=== PATIENT | male | born 1995 | race American Indian/Alaskan Native ===

== ENCOUNTER 2021-10-02 10:49 | Emergency (ER) | payer SELFPAY ==
--- NOTE | 2021-10-02 12:48 | Emergency Department Report ---
ED ENT HPI - General Chief complaint: Dental/Oral Stated complaint: ORAL PAIN AND FACIAL LACERATIONS Time Seen by Provider: 10/02/21 12:43 Source: patient Mode of arrival: Ambulatory Limitations: No Limitations - History of Present Illness Initial comments: 25-year-old male presents to the ER today with complaints of dental pain. Patient states that symptoms started about 3 days ago. He complains of pain to his right upper and lower jaw. He does admit that he has "bad teeth" in that area. He does not currently have a dentist. He does have health insurance but he is unsure if he has dental coverage. Patient states that the pain seems to be getting worse and he noticed some swelling to his right cheek and right lower jaw recently. He denies any trismus, drooling, facial redness, fever, chills, difficulty swallowing, difficulty breathing or any additional symptoms at this time. MD complaint: tooth pain -: days(s) (3 days ago ) - Related Data Previous Rx's Medication Instructions Recorded Last Taken Type Clindamycin [Clindamycin CAP] 300 mg PO Q8H #40 cap 10/02/21 Unknown Rx Ibuprofen [Motrin] 600 mg PO Q8H PRN #30 tablet 10/02/21 Unknown Rx traMADoL [Ultram] 50 mg PO Q6HR PRN #12 tablet 10/02/21 Unknown Rx Allergies Allergy/AdvReac Type Severity Reaction Status Date / Time Penicillins Allergy Hives Verified 10/02/21 11:04 shellfish derived Allergy Hives Verified 10/02/21 11:04 ED Dental HPI - General Chief complaint: Dental/Oral Stated complaint: ORAL PAIN AND FACIAL LACERATIONS Time Seen by Provider: 10/02/21 12:43 Source: patient Mode of arrival: Ambulatory Limitations: No Limitations - Related Data Previous Rx's Medication Instructions Recorded Last Taken Type Clindamycin [Clindamycin CAP] 300 mg PO Q8H #40 cap 10/02/21 Unknown Rx Ibuprofen [Motrin] 600 mg PO Q8H PRN #30 tablet 10/02/21 Unknown Rx traMADoL [Ultram] 50 mg PO Q6HR PRN #12 tablet 10/02/21 Unknown Rx Allergies Allergy/AdvReac Type Severity Reaction Status Date / Time Penicillins Allergy Hives Verified 10/02/21 11:04 shellfish derived Allergy Hives Verified 10/02/21 11:04 ED Review of Systems ROS: Stated complaint: ORAL PAIN AND FACIAL LACERATIONS Other details as noted in HPI Comment: All other systems reviewed and negative Constitutional: denies: chills, fever Eyes: denies: eye pain, eye discharge, vision change ENT: dental pain. denies: ear pain, throat pain, hearing loss, epistaxis, congestion Respiratory: denies: cough, shortness of breath, wheezing Cardiovascular: denies: chest pain, palpitations Endocrine: no symptoms reported Gastrointestinal: denies: abdominal pain, nausea, diarrhea Genitourinary: denies: urgency, dysuria, frequency, hematuria, discharge, testicular pain, testicular mass Musculoskeletal: denies: back pain, joint swelling, arthralgia Skin: denies: rash, lesions, change in color, change in hair/nails, pruritus Neurological: denies: headache, weakness, numbness, paresthesias, confusion, abnormal gait, vertigo Psychiatric: denies: anxiety, depression, auditory hallucinations, visual hallucinations, homicidal thoughts, suicidal thoughts Hematological/Lymphatic: denies: as per HPI, easy bleeding, easy bruising, swollen glands ED Past Medical Hx - Past Medical History Previous Medical History?: No - Medications Home Medications: Home Medications Medication Instructions Recorded Confirmed Last Taken Type Clindamycin [Clindamycin CAP] 300 mg PO Q8H #40 cap 10/02/21 Unknown Rx Ibuprofen [Motrin] 600 mg PO Q8H PRN #30 tablet 10/02/21 Unknown Rx traMADoL [Ultram] 50 mg PO Q6HR PRN #12 tablet 10/02/21 Unknown Rx ED Physical Exam - General Limitations: No Limitations General appearance: alert, in no apparent distress - Head Head exam: Present: atraumatic, normocephalic, normal inspection - Eye Eye exam: Present: normal appearance, PERRL, EOMI Pupils: Present: normal accommodation - ENT ENT exam: Present: mucous membranes moist, other (No obvious facial redness or swelling noted.) - Expanded ENT Exam Expanded Mouth exam: Present: normal external inspection Teeth exam: Present: dental caries 1 - Dental Tenderness (Severe tenderness), Other (Severe dental decay to the gum with associated mild gingival swelling. No apparent fluctuance noted.) 2 - Dental Tenderness, Other (Severe decay, with mild gingival swelling, but no obvious abscess) - Neck Neck exam: Present: normal inspection, full ROM, lymphadenopathy. Absent: meningismus - Respiratory Respiratory exam: Present: normal lung sounds bilaterally. Absent: respiratory distress, wheezes, rales, rhonchi - Cardiovascular Cardiovascular Exam: Present: regular rate, normal rhythm, normal heart sounds - GI/Abdominal GI/Abdominal exam: Present: soft. Absent: distended, tenderness, guarding, rebound - Neurological Exam Neurological exam: Present: alert, oriented X3, CN II-XII intact, normal gait - Psychiatric Psychiatric exam: Present: normal affect, normal mood - Skin Skin exam: Present: intact ED Course Vital Signs 10/02/21 11:02 Temperature 98.4 F Pulse Rate 70 Respiratory 16 Rate Blood Pressure 108/84 O2 Sat by Pulse 97 Oximetry ED Medical Decision Making - Medical Decision Making 1253: The patient is resting comfortably and is well-appearing and in no acute distress. There is no respiratory distress, no stridor and the mental status is normal. The neurological exam is normal, there is no significant signs of dehydration, and the patient is able to tolerate p.o. fluids. The history, exam, diagnostic testing and the patient current condition does not suggest an infectious process such as meningitis, retropharyngeal abscess, peritonsillar abscess, Michel's angina, mastoiditis, orbital cellulitis, periorbital cellulitis, sepsis or any significant pathology warranting further testing, continued ED treatment, admission, consultation or any other evaluation at this time. The vital signs have been stable. The patient condition is stable and appropriate for discharge. Critical care attestation.: If time is entered above; I have spent that time in minutes in the direct care of this critically ill patient, excluding procedure time. ED Disposition Clinical Impression: Pain due to dental caries Disposition: HOME / SELF CARE / HOMELESS Is pt being admited?: No Does the pt Need Aspirin: No Condition: Stable Instructions: Dental Caries, Pediatric Additional Instructions: I recommend that you take the clindamycin and no Toradol and Ultram as prescribed to help with your symptoms. I do recommend that you call your insurance company to find out if he had dental coverage and if you do find out about clinics in the area that he can follow-up with for dental health. You can do warm salt water rinses. Return to the ER if your symptoms worsens in any way. Prescriptions: Clindamycin [Clindamycin CAP] 300 mg PO Q8H #40 cap Ibuprofen [Motrin] 600 mg PO Q8H PRN #30 tablet PRN Reason: Pain traMADoL [Ultram] 50 mg PO Q6HR PRN #12 tablet PRN Reason: Pain Referrals: PRIMARY CARE, [Referring] - 3-5 Days Time of Disposition: 12:51
[2021-10-02 13:13] VITALS: BP 116/83
== END 2021-10-02 13:15 | disposition home or self-care (01) ==
LOC: ED 10:49
DX: K02.9 Dental caries, unspecified (principal)
CPT/HCPCS: 99282